=== PATIENT | male | born 1950 | race Caucasian/White ===

== ENCOUNTER → 2016-10-05 | Outpatient (CLI) | payer MEDICARE, OTHER ==
[2016-10-05 12:41] LABS: HEMATOCRIT 45.8 % (39.0-51.0); MEAN CELL VOLUME 91.3 FL (80.0-100.0); MEAN CORPUSCULAR HEMOGLOBIN 30.9 PG (27.0-34.0); MEAN CORPUSCULAR HGB CONC 33.8 % (32.0-36.0); PLATELET COUNT 226 TH/MM3 (150-450); RED BLOOD COUNT 5.02 MIL/MM3 (4.50-5.90); RED CELL DISTRIBUTION WIDTH 13.1 % (11.6-17.2); REVIEW FLAG FINAL
[2016-10-05 13:20] LABS: ALKALINE PHOSPHATASE 117 U/L (45-117); ALT (GPT) 46 U/L (12-78); ANION GAP 8 MEQ/L (5-15); AST (GOT) 24 U/L (15-37); BICARBONATE 25.7 MEQ/L (21.0-32.0); BLOOD UREA NITROGEN 12 MG/DL (7-18); CHLORIDE 105 MEQ/L (98-107); GLOMERULAR FILTRATION RATE 73 ML/MIN (>89); GLUCOSE,FASTING 109 MG/DL (74-99); HDL CHOLESTEROL 52.4 MG/DL (40.0-60.0); LDL CHOLESTEROL 133 MG/DL (0-99); POTASSIUM 4.4 MEQ/L (3.5-5.1); SODIUM (NA) 139 MEQ/L (136-145); TOTAL BILIRUBIN ADULT 0.5 MG/DL (0.2-1.0)
[2016-10-05 16:24] LABS: HEMOGLOBIN A1a 1.1 %; HEMOGLOBIN A1b 0.8 %; HEMOGLOBIN Ao 85.1 %; HEMOGLOBIN LA1C 2.1 %; HEMOGLOBIN P3 3.7 %
== END ==
LOC: PLAB 08:21
PROVIDERS: ATTEND Family Medicine
DX: E78.5 Hyperlipidemia, unspecified (principal); Z12.5 Encounter for screening for malignant neoplasm of prostate; R73.01 Impaired fasting glucose; Z00.00 Encounter for general adult medical examination without abnormal findings; R53.83 Other fatigue
CPT/HCPCS: 36415; 80053; 80061; 83036; 84443; 85027; 86141; G0103

== ENCOUNTER → 2017-09-05 | Outpatient (CLI) | payer MEDICARE, OTHER ==
[2017-09-05 14:19] LABS: AUTOMATED NEUTROPHIL # 4.1 TH/MM3 (1.8-7.7); BASOPHIL # 0.1 TH/MM3 (0-0.2); BASOPHIL % 0.8 % (0.0-2.0); EOSINOPHIL # 0.2 TH/MM3 (0-0.4); EOSINOPHIL % 2.5 % (0.0-4.0); HEMATOCRIT 45.8 % (39.0-51.0); HEMO FLAGS DIFF FINAL; LYMPH % 26.4 % (9.0-44.0); LYMPHOCYTE # 1.8 TH/MM3 (1.0-4.8); MEAN CELL VOLUME 95.1 FL (80.0-100.0); MEAN CORPUSCULAR HEMOGLOBIN 31.6 PG (27.0-34.0); MEAN CORPUSCULAR HGB CONC 33.3 % (32.0-36.0); NEUT % 60.3 % (16.0-70.0); PLATELET COUNT 220 TH/MM3 (150-450); RED BLOOD COUNT 4.82 MIL/MM3 (4.50-5.90); WHITE BLOOD COUNT 6.8 TH/MM3 (4.0-11.0)
[2017-09-05 14:23] LABS: ANION GAP 5 MEQ/L (5-15); AST (GOT) 27 U/L (15-37); BLOOD UREA NITROGEN 11 MG/DL (7-18); CHLORIDE 104 MEQ/L (98-107); GLOMERULAR FILTRATION RATE 70 ML/MIN (>89); GLUCOSE,FASTING 108 MG/DL (74-99); POTASSIUM 4.6 MEQ/L (3.5-5.1); SODIUM (NA) 139 MEQ/L (136-145)
[2017-09-05 14:35] LABS: ALKALINE PHOSPHATASE 102 U/L (45-117); ALT (GPT) 40 U/L (12-78); HDL CHOLESTEROL 62.7 MG/DL (40.0-60.0); LDL CHOLESTEROL 115 MG/DL (0-99); TOTAL BILIRUBIN ADULT 0.7 MG/DL (0.2-1.0)
[2017-09-05 16:15] LABS: HEMOGLOBIN A1a 1.1 %; HEMOGLOBIN A1b 0.7 %; HEMOGLOBIN Ao 85.2 %; HEMOGLOBIN LA1C 2.2 %; HEMOGLOBIN P3 3.6 %
== END ==
LOC: PLAB 08:30
PROVIDERS: ATTEND Family Medicine
DX: E78.5 Hyperlipidemia, unspecified (principal); R53.83 Other fatigue; R73.01 Impaired fasting glucose; Z12.5 Encounter for screening for malignant neoplasm of prostate
CPT/HCPCS: 36415; 80053; 80061; 83036; 84443; 85025; G0103

== ENCOUNTER 2017-10-03 05:54 | Emergency (ER) | payer MEDICARE, OTHER ==
[~2017-10-03] VITALS: Ht 180.3 cm; Wt 90.2 kg
[2017-10-03 06:03] VITALS: BP 145/87; PULSE 79; RESP 20; TEMP 98.2; O2SAT 94
[2017-10-03 06:38] VITALS: BP 145/87; PULSE 79; RESP 16; TEMP 98.2; O2SAT 94
[2017-10-03 06:49] VITALS: BP 129/71; PULSE 73; RESP 18; O2SAT 97
[2017-10-03] MEDS ORDERED: ACETAMINOPHEN/HYDROcodone 325 MG/5 MG TAB PO ONE (07:30)
[2017-10-03] MEDS ORDERED: KETOROLAC TROMETHAMINE 60 MG/2 ML (IM) VIAL IM ONE (07:45)
--- NOTE | 2017-10-03 07:57 | RADRPT ---
EXAM DATE/TIME: 10/03/2017 07:19 [facility] COMPARISON: No previous studies available for comparison. INDICATIONS : Left shoulder pain post fall. MEDICAL HISTORY : None. SURGICAL HISTORY : None. ENCOUNTER: Initial ACUITY: 1 day PAIN SCORE: 4/10 LOCATION: Left anterior shoulder FINDINGS: 4 views of the left shoulder demonstrate no fracture or dislocation. The acromioclavicular joint is i ntact. No soft tissue abnormality is identified. The visualized portions of the left lung are clear and no displaced rib fracture is seen. CONCLUSION: No acute left shoulder abnormality is identified. Aristeo Robles MD on October 03, 2017 at 7:42 Board Certified Radiologist. This report was verified electronically.
--- NOTE | 2017-10-03 07:58 | RADRPT ---
EXAM DATE/TIME: 10/03/2017 07:19 [facility] COMPARISON: No previous studies available for comparison. INDICATIONS : Left wrist pain post fall. MEDICAL HISTORY : None. SURGICAL HISTORY : None. ENCOUNTER: Initial ACUITY: 1 day PAIN SCORE: 4/10 LOCATION: Left entire wrist FINDINGS: Three views of the left wrist demonstrate no fracture or dislocation. Mineralization is within normal limits. There is no significant arthropathy. No soft tissue abnormality or radiopaque foreign body i s identified. CONCLUSION: No acute left wrist abnormality is identified. Aristeo Robles MD on October 03, 2017 at 7:54 Board Certified Radiologist. This report was verified electronically.
[2017-10-03] MEDS ORDERED: NORC5TAB PO (08:09)
--- NOTE | 2017-10-03 08:09 | PD ---
HPI Chief Complaint: Injury Time Seen by Provider: 07:02 Travel History International Travel<30 days: No Contact w/Intl Traveler<30days: No Traveled to known affect area: No History of Present Illness HPI Patient is a 66-year-old male who comes in complaining of left wrist pain and shoulder pain after he slipped and fell in the shower. He says this happened last night. He says he landed on his left arm. He denies hitting his head or any other injury. He took an aspirin at home which did not relieve his symptoms. He is concerned for a broken wrist. He is able to move his left arm , but says he has a lot of pain. He denies numbness or tingling to the extremity. Movement does make his pain worse. [facility] Past Medical History Cancer: Yes (skin) Influenza Vaccination: No Social History Alcohol Use: Yes (1-2 drinks/daily) Tobacco Use: No Substance Use: No Allergies-Medications (Allergen,Severity, Reaction): Coded Allergies: No Known Allergies (Unverified , 10/03/17) Review of Systems General / Constitutional: No: Fever, Chills Eyes: No: Blurred Vision HENT: No: Headaches, Lightheadedness Cardiovascular: No: Chest Pain or Discomfort Respiratory: No: Shortness of Breath Gastrointestinal: No: Nausea, Vomiting Musculoskeletal: Positive: Edema, Pain Skin: No Rash, No Change in Pigmentation Neurologic: No: Weakness, Dizziness Physical Exam Narrative GENERAL: Awake and alert, in no acute distress. SKIN: Focused skin assessment warm/dry. No wounds. HEAD: Atraumatic. Normocephalic. EYES: Pupils equal and round. No scleral icterus. ENT: Mucous membranes pink and moist. CARDIOVASCULAR: Regular rate and rhythm. No murmur appreciated. RESPIRATORY: No accessory muscle use. Clear to auscultation. Breath sounds equal bilaterally. MUSCULOSKELETAL: No obvious deformities. No clubbing. No cyanosis. Edema of the left wrist. No tender to palpation of the radius or ulna. Pain with movement of the wrist. Radial pulse intact. Pain with movement of the left shoulder. No bony tenderness to palpation. NEUROLOGICAL: Awake and alert. No obvious cranial nerve deficits. Motor grossly within normal limits. Normal speech. Sensation intact. Data Data Last Documented VS Vital Signs Date Time Temp Pulse Resp B/P (MAP) Pulse Ox O2 Delivery O2 Flow Rate FiO2 10/03/17 07:02 16 10/03/17 06:49 73 129/71 (90) 97 Room Air 10/03/17 06:38 98.2 Orders Orders Wrist, Complete ([id number]) (10/03/17 ) Shoulder, Complete (>2vws) (10/03/17 ) Acetamin-Hydrocod 325-5 Mg (Rollins 5-325 (10/03/17 07:30) Ketorolac Inj (Toradol Inj) (10/03/17 07:45) MDM Medical Decision Making Medical Screen Exam Complete: Yes Emergency Medical Condition: Yes Medical Record Reviewed: Yes Differential Diagnosis Wrist fracture versus sprain versus shoulder sprain versus humeral fracture Narrative Course Patient is a 66-year-old male who comes in complaining of wrist and shoulder pain after a fall. Exam shows swelling of the wrist, no bony tenderness. X- ray of the wrist and shoulder performed showing no acute abnormalities. Patient given an Ochoa bandage. Given a prescription for pain medicine. Advised to follow-up with orthopedics as needed. Advised to return to the ED as needed for any worsening symptoms. Diagnosis Primary Impression: Left wrist sprain Qualified Codes: S63.502A - Unspecified sprain of left wrist, initial encounter Patient Instructions: General Instructions, Wrist Sprain (ED) Additional Instructions: Wear the ochoa bandage for comfort. Take Ibuprofen for pain. Take pain medicine for severe pain. Follow up with orthopedics. Return to the ED as needed for any worsening symptoms. Scripts Hydrocodone-Acetaminophen (Rollins) 5 Mg-325 Mg Tab 1 TAB PO Q6H Y for PAIN, #7 TAB 0 Refills Prov: Sherry Boyd MD 10/03/17 Disposition: 01 DISCHARGE HOME Condition: Stable Sherry Boyd MD Oct 03, 2017 08:09
== END 2017-10-03 08:25 | disposition home or self-care (01) ==
LOC: PHED 05:54
DX: S63.502A Unspecified sprain of left wrist, initial encounter (principal); W01.0XXA Fall on same level from slipping, tripping and stumbling without subsequent striking against object, initial encounter; Y93.E1 Activity, personal bathing and showering; Z85.828 Personal history of other malignant neoplasm of skin
CPT/HCPCS: 73030; 73110; 96372; 99284; J1885